=== PATIENT | female | born 1965 | race Caucasian/White ===

== ENCOUNTER 2022-09-19 14:25 | Outpatient (CLI) | payer OTHER, SELFPAY ==
[2022-09-19 14:50] LABS: Hemoglobin 14.1 g/dL (12.0-15.0)
--- NOTE | 2022-09-19 14:52 | ECG_ITS ---
Measurements Intervals [place] Rate: 62 P: 35 SD: 167 QRS: 38 QRSD: 95 T: 45 QT: 412 QTc: 420 Interpretive Statements SINUS RHYTHM NORMAL ELECTROCARDIOGRAM NO PREVIOUS ECG AVAILABLE FOR COMPARISON Electronically Signed On 09-20-2022 13:07:49 CDT by Puma Islas M.D.
[2022-09-19 15:00] LABS: Albumin Level 4.3 g/dL (3.5-5.1); Estimated Glomerular Filt Rate > 60; Glucose 147 mg/dL (65-110)
[2022-09-19 15:00] LABS: Urine Cotinine NEGATIVE
[2022-09-19 17:08] LABS: Hemoglobin A1C 5.6 % (<5.7)
== END 2022-09-19 14:26 | disposition home or self-care (01) ==
PROVIDERS: PCP Family Medicine; Visit Provider Orthopaedic Surgery
DX: M17.11 Unilateral primary osteoarthritis, right knee (principal); I10 Essential (primary) hypertension
CPT/HCPCS: 80307; 82040; 82565; 82947; 83036; 85014; 85018; 93005

== ENCOUNTER 2022-10-26 14:05 | Outpatient (CLI) | payer OTHER, SELFPAY ==
[2022-10-26 15:21] LABS: Basophils Absolute Auto 0.1 K/mm3 (0.0-0.1); Basophils Percent Auto 0.5 % (0.2-1.2); Eosinophils Absolute Auto 0.6 K/mm3 (0-0.3); Eosinophils Percent Auto 5.5 % (0-4.4); Hemoglobin 14.2 g/dL (12.0-15.0); Immature Granulocyte Absolute 0.03 K/mm3 (0.00-0.031); Immature Granulocyte Percent A 0.3 % (0-0.5); Lymphocytes Absolute Auto 4.47 K/mm3 (0.9-3.2); Lymphocytes Percent Auto 40.5 % (18.3-44.2); Mean Corpuscular HGB Conc 32.3 g/dl (32-36); Mean Corpuscular Hemoglobin 31.1 pg (26-34); Mean Corpuscular Volume 96.3 fl (80-100); Monocytes Absolute Auto 1.1 K/mm3 (0.1-0.6); Monocytes Percent Auto 9.7 % (2.6-8.5); Neutrophils Absolute Auto 4.8 K/mm3 (1.3-6.7); Neutrophils Percent Auto 43.5 % (45.5-73.1); Platelet Count Result 291 k/mm3 (150-375); Red Blood Count 4.57 M/mm3 (4.2-5.4); Red Cell Distribution Width 12.9 % (11.5-14.5)
[2022-10-26 15:31] LABS: Albumin Level 4.4 g/dL (3.5-5.1); Estimated Glomerular Filt Rate > 60; Glucose 91 mg/dL (65-110)
[2022-10-26 15:34] LABS: Urine Cotinine NEGATIVE
== END 2022-10-26 14:06 | disposition home or self-care (01) ==
LOC: ANHSURGERY 14:09
PROVIDERS: PCP Family Medicine; Visit Provider Orthopaedic Surgery
DX: M17.11 Unilateral primary osteoarthritis, right knee (principal); Z01.818 Encounter for other preprocedural examination
CPT/HCPCS: 80307; 82040; 82565; 82947; 85025; 87081

== ENCOUNTER 2022-11-25 15:45 | Observation (INO) | payer OTHER, SELFPAY ==
--- NOTE | 2022-10-26 13:19 | PC.NURSE ---
PRE-OP INSTRUCTIONS, PLEASE READ CAREFULLY Report to the Outpatient Waiting Room, entrance under the green pavilion located off [facility], at time _0600_ on date _11/24/22_. Planned Procedure Time: _0730_. PACK A SMALL OVERNIGHT BAG AND LEAVE IN THE CAR ALONG WITH YOUR WALKER Time changes happen often and if your time is changed the preop area will call you the afternoon before. - You and your visitor will be asked to self-screen and do not enter if you have any COVID symptoms. - A mask is optional within the hospital at this time. -VISITING HOURS 8AM-8PM Patients may have clear liquids (water, carbonated beverages, clear teas, apple juice) until 3 hours prior to surgery with a maximum of 20 ounces. - No food from midnight until time of surgery Take the following medications with a SIP of water the morning of surgery: _NONE_ DO NOT STOP ANY OF YOUR OTHER PRESCRIPTION MEDICATIONS PRIOR TO SURGERY ?EXCEPT THE FOLLOWING Medications to discontinue per ANESTHESIA - _MULTIVITAMIN / SUPPLEMENTS 3 DAYS PRIOR TO SURGERY, Date to take last dose 11/20/22_ Please no make-up, nail panamanian, hairspray, perfume, deodorant, or body powder the day of surgery. No jewelry (including any body piercings) or valuables the day of surgery, leave them at home. Please take a shower or bath the night before, or the morning of, surgery with an antibacterial soap. Wear comfortable, loose fitting clothing. - Jewelry must be removed prior to entering the operating room. Rings and piercings that are not removed may be cut off. - The hospital will not accept responsibility for valuables. - Please leave all valuables, including medications, at home the day of surgery. If you are going home after surgery, a licensed pick up and delivery driver must drive you home. - NO public transportation without another adult if you receive anesthesia. - We recommend that an adult stay with you for 24 hours following discharge. - We also recommend that you do not drive, make important decision, drink alcoholic beverages, or take any drugs that were not prescribed by your health care provider for at least 24 hours after your discharge time. Follow any additional instructions given to you from your surgeon. TOTAL JOINT CLASS 11/02/22 @ 1000 AM, [facility] ENTRANCE 2 - LOWER LEVEL If you or anyone in your household have experienced Covid symptoms in the past week, please notify your surgeon or the nurse liaison at the phone number below for possible testing. Telephone instructions given to _PATIENT_and asked if any additional questions and then verbalized understanding. Patient advised to call surgeon office or pre surgery nurse liaison [phone] if any additional questions.
[2022-10-26 14:33] VITALS: BP 124/76; PULSE 76; RESP 18; TEMP 36.8; O2SAT 97; BMI 37.3
[2022-11-24] VITALS (15 sets, daily range): BP systolic 126–150; BP diastolic 63–107; PULSE 63–87; RESP 12–20; TEMP 36.3–36.9; O2SAT 92–100; BMI 37.6
--- NOTE | 2022-11-24 06:41 | WPDANESEPPF ---
Anes - Initial Pre Proc Eval Procedure: Operation Date: 11/24/22 07:30 Proposed Procedures p Right Total Knee Arthroplasty - Tavo Sarmiento MD Date/Time: 11/24/22 06:41 Surgeon: Tavo Sarmiento MD Pre Op Diagnosis: primary oa right knee Patient Data Age: 57 Gender: F Height: 1.7 m Weight: 108.2 kg Last Vital Signs Temp 36.8 C 10/26/22 14:33 Pulse 76 10/26/22 14:33 Resp 18 10/26/22 14:33 BP 124/76 10/26/22 14:33 Pulse Ox 97 10/26/22 14:33 O2 Del Method Room Air 10/26/22 14:33 Allergies Allergy/AdvReac Type Severity Reaction Status Date / Time codeine Allergy Intermediate ITCHING Verified 11/24/22 06:40 cat dander Allergy Unknown ITCHY Verified 11/24/22 06:40 EYES/RUNNY NOSE horse dander Allergy Unknown ITCHY Verified 11/24/22 06:40 EYES/RUNNY NOSE house dust Allergy Unknown ITCHY Verified 11/24/22 06:40 EYES/RUNNY NOSE Home Medications Medication Instructions Recorded Confirmed Type multivitamin 1 tablet PO DAILY 04/04/19 10/26/22 History antiarthritic combination no.2 900 900 mg PO DAILY 07/15/21 10/26/22 History mg tablet (glucosamine-chondroitin) ascorbic acid (vitamin C) 1,000 mg 1,000 mg PO DAILY 07/15/21 10/26/22 History tablet flaxseed oil 1,000 mg capsule 1,000 mg PO DAILY 04/27/22 10/26/22 History tumeric 100 mg-jo 150 mg-olive 1 cap PO DAILY 04/27/22 10/26/22 History 50 mg-oreg 150 mg-caprylate capsule Nitric Oxide Gummy 2 gummy DAILY 10/26/22 10/26/22 History magnesium 250 mg tablet 250 mg DAILY 10/26/22 10/26/22 History prednisone 5 mg tablet 5 mg PO DAILY #55 tabs 10/26/22 10/26/22 Rx Patient hx anesthesia problems: none Family hx anesthesia problems: none Results Review: All pre-operative results and documents have been reviewed as part of the pre-operative evaluation. [facility] Past Medical History Medical History Hypertension Obesity due to excess calories Osteoarthritis of both knees Surgical History Surgical History History of cholecystectomy (~2013) Family History Family History Father Diabetes mellitus Family history of congenital heart disease Other Family history of malignant neoplasm of breast in first degree relative Social History Social History Smoking status: Former smoker Tobacco type: cigarettes Second hand tobacco smoke exposure: No Additional smoking assessment comments: STATES SMOKED SOCIALLY IN COLLEGE [id number]~DENIES ALL FORMS OF TOBACCO USE Alcohol intake: current Drinks per week: 1 Substance use: current Substance use type: marijuana Other substance usage details: 5MG GUMMY PRN SLEEP Last use: 10/22/22 Lack of Transportation: No Lack of Food: Never True Current Housing: I Have Housing Concerned About Future Housing: No Difficulty Paying Gas/Electric Bills: No Difficulty Paying for Meds: No Currently Unemployed: No Education: Associate Degree Difficulty w/ Childcare or Family Care: No Living arrangements: with family Spiritual care concerns: No Anes - Eval Final PreProcedure Day of Procedure 11/24/22 06:41 Patient weight: obese Heart: regular rate and rhythm Lungs: clear to auscultation Airway: Mallampati scale class II Neurological: alert and oriented Last oral intake: >/= 8 hours ASA classification: III Emergent: no Anesthetic plan: proceed Anesthesia type and monitoring: general LMA and standard monitoring Results Review: All pre-operative results and documents have been reviewed as part of the pre-operative evaluation. Informed Consent: The patient's anesthetic plan and its attendant risks and benefits were discussed with the patient/family/POA. Questions were solicited and answers provided to the
[2022-11-24] MEDS: ACETAMINOPHEN 500 MG TABLET 1000 MG PO (06:54)
[2022-11-24] MEDS: TRANEXAMIC ACID 1,000MG/ISO100 1,000 MG/100 ML BAG 200 MG IVPB (06:55)
[2022-11-24] MEDS: LACTATED RINGERS 1,000 ML 30 ML IV CONT ×2 (06:59→09:48)
--- NOTE | 2022-11-24 07:12 | WPDHPUPDATE1 ---
History and Physical Update Update Date/Time: 11/24/22 07:12 History and Physical has been reviewed, including an updated exam of the patient. There are NO changes in the patient's condition. Risks, benefits, and alternatives have been discussed and questions answered. Patient agrees to proceed with procedure.
--- NOTE | 2022-11-24 07:15 | WPDANESPNB ---
Anes - Peripheral Nerve Block Date/Time: 11/24/22 07:15 I have discussed with the patient/family/POA the placement of a peripheral nerve block for post-operative pain management, including associated risks, benefits, complications, and side effects. Alternative methods of post-operative analgesia were detailed. Questions were solicited and answers provided to the satisfaction of the patient/family/POA. Time-Out: A pre-procedural Time-Out was completed immediately before starting the procedure and confirmed: Patient Identification, Site, Procedure, Patient Position and the Availability of Requisite Equipment. Clinical Indications: Acute post-operative pain management requested by the operative surgeon. Nerve Block Insertion Note Anes-nerve block: femoral right Patient position: supine Skin prep: chlorhexidine Needle: 22 gauge, stimulating, insulated echogenic needle. Needle length: 50 mm Technique: nerve stimulation lost at (mA) (0.3) Injectate: bupivacaine 0.5% with epi 5 mcg/ml (30cc no epi) Observations: tolerated well Complications: none Procedure start time:: 709 Procedure end time:: 714
[2022-11-24] MEDS: ceFAZolin 2 GM/D5W 50 ML 2 GM/50 ML BAG IVPB ×3 (07:22→23:13)
[2022-11-24] MEDS: fentaNYL CITRATE INJ (*CRX) 100 MCG/2 ML VIAL 25 MCG IV PUSH ×8 (09:59→10:50)
--- NOTE | 2022-11-24 10:20 | W.PM.PROC2 ---
Procedure Note - Detailed Date of Procedure 11/24/22 Pre-op Diagnosis primary oa right knee Post-op Diagnosis Same Procedure Performed Total knee arthroplasty, right. Surgeon Tavo Sarmiento MD Anesthesia General and Regional (femoral block) Findings Good bone quality. Moderate synovitis. Valgus femur angle. 6 degree resection. Lateral release including popliteus, and IT band. 3 degree external rotation femur matched the AP axis well, with equal flexion gaps after lateral release. Description of Procedure The patient was brought to the operating room. A general anesthetic was administered. The leg was prepped and draped in the usual sterile fashion. The limb was elevated and the tourniquet inflated to 300 mmHg. A longitudinal incision was created along the medial border of the patella and patellar tendon, and a trivector approach to the knee was performed. No medial release was taken. The knee was then flexed. The osteophytes were carefully removed. The intramedullary guide was placed in the femoral canal. The distal femoral resection was then taken with the oscillating saw. The collateral ligaments were carefully protected. The tibia was carefully exposed. The jig was applied, and the proximal tibia was resected according to preoperative plan. The knee was balanced in extension. Appropriate releases were taken where needed. The anterior cruciate ligament and meniscal remnants were removed. The posterior cruciate ligament was preserved. The patella was measured. Patellar resection was carried out with the oscillating saw. The lug holes drilled. The femur was sized and rotation assessed using a combination of gap balancing, posterior referencing, and the AP axis. The 4 in 1 cutting block was used to finish the femoral cuts after equal gaps were assured. The osteophytes were carefully removed from the back of the knee. The knee was copiously irrigated with antibiotic solution periodically throughout the procedure. The meniscal remnants were removed. The spacer block was used to confirm equal flexion and extension gaps. Lateral release with pie crusting performed. The tibia was sized and broached. The bony surfaces were prepared with pulsatile lavage. The real tibia was impacted into position. The femur was press-fit. The patella was press-fit. Excess cement was carefully removed. Patellar tracking was carefully assessed. The lateral patellofemoral ligament was released. Copious irrigation then performed. The wound was closed with #1 Vicryl suture, #2, 2-0, and 3-0 barbed suture, followed by Steri-Strips. A sterile bulky dressing was applied. Meticulous hemostasis was maintained throughout the procedure, and the bipolar cautery device was used. The pain relieving mixture was injected into the periarticular tissues during the procedure. There were no complications. The patient was extubated and brought to the recovery room in stable condition after the application of sterile dressing with Otoniel bandage. Implants Eyestorm Triathlon knee system, press fit tritanium tibia size 5, press-fit cruciate retaining femoral component size 5 ,and an 11 mm X3 cruciate retaining polyethylene insert. 32 mm asymmetric metal backed tritanium patella component. Estimated Blood Loss -100.0 Drains No Pathology None sent Complications No immediate complications Condition Stable Disposition PACU [facility] Billing Surgery - Charge Forward: Surgery Billing
--- NOTE | 2022-11-24 10:22 | SUR.PHASEI ---
Simple mask removed at 1023.
[2022-11-24] MEDS: ONDANSETRON INJ 4 MG/2 ML VIAL IV PUSH ×2 (11:18→15:28)
[2022-11-24] MEDS: oxyCODONE HCL (*CRX) 5 MG TAB IR 10 MG PO ×2 (11:23→15:32)
--- NOTE | 2022-11-24 11:35 | PC.NURSE ---
Upon arrival from recovery patient c/o 8/[address] Sarmiento notified, new orders received.
[2022-11-24] MEDS: ASPIRIN 81 MG ENTERIC TABLET PO (16:18)
[2022-11-24] MEDS: MELOXICAM 7.5 MG TABLET PO (16:19)
[2022-11-24] MEDS: oxyCODONE HCL (*CRX) 5 MG TAB IR PO (21:49)
[2022-11-25] VITALS (9 sets, daily range): BP systolic 111–148; BP diastolic 60–72; PULSE 73–82; RESP 16–20; TEMP 36.5–37.2; O2SAT 93–98
--- NOTE | ~2022-11-25 | XR_ITS ---
EXAMINATION: [id number] DATE: 11/24/2022 10:03 INDICATION: Total right knee arthroplasty. Postop. TECHNIQUE: 2 views of right knee were obtained. COMPARISON: Right knee radiographs 01/20/2022 FINDINGS: There is a total right knee arthroplasty with patellar resurfacing in near-anatomic alignme nt. No fracture. There is gas in the knee joint and soft tissues, consistent with recent surgery. IMPRESSION: 1. Total right knee arthroplasty in near-anatomic alignment. Reviewed, dictated and finalized at location A.
[2022-11-25] MEDS: oxyCODONE HCL (*CRX) 5 MG TAB IR PO ×3 (03:47→17:11)
[2022-11-25 05:13] LABS: Basophils Percent Auto 0.2 % (0.2-1.2); Hemoglobin 12.6 g/dL (12.0-15.0); Immature Granulocyte Absolute 0.06 K/mm3 (0.00-0.031); Immature Granulocyte Percent A 0.5 % (0-0.5); Lymphocytes Absolute Auto 2.33 K/mm3 (0.9-3.2); Lymphocytes Percent Auto 18.1 % (18.3-44.2); Mean Corpuscular HGB Conc 32.3 g/dl (32-36); Mean Corpuscular Hemoglobin 31.3 pg (26-34); Mean Corpuscular Volume 96.8 fl (80-100); Monocytes Percent Auto 15.2 % (2.6-8.5); Neutrophils Absolute Auto 8.5 K/mm3 (1.3-6.7); Platelet Count Result 240 k/mm3 (150-375); Red Blood Count 4.03 M/mm3 (4.2-5.4); Red Cell Distribution Width 13.4 % (11.5-14.5); White Blood Count 12.9 K/mm3 (4.5-10.0)
[2022-11-25 05:31] LABS: Anion Gap 1 mmol/L (8-16); Blood Urea Nitrogen 16 mg/dL (7-17); Calcium 8.7 mg/dL (8.4-10.2); Carbon Dioxide 31 mmol/L (22-30); Chloride 103 mmol/L (98-107); Estimated CRCL calculation 98 ml/min; Estimated Glomerular Filt Rate > 60; Glucose 123 mg/dL (65-110); Potassium 4.1 mmol/L (3.4-5.0); Sodium 135 mmol/L (137-145)
--- NOTE | 2022-11-25 07:45 | PM.DS ---
DS: Admitting Diagnosis Discharge Date 11/25/22 Admitting Diagnosis OA knee Right DS: Discharge Diagnosis Discharge Diagnosis (1) Status post total right knee replacement: Code(s): Z96.651 - Presence of right artificial knee joint Status: Acute Assessment and Plan: Postop day 1: Right total knee arthroplasty. Patient tolerated procedure well. No complications. Pain manageable with pain medication. No numbness or tingling. We had a lengthy discussion regarding postoperative wound care, limitations, expectations, and exercises. Patient shows good understanding. She has had initial physical therapy and is tolerating it well. DVT prophylaxis: 81 mg baby aspirin b.i.d. for 14 days. Pain medication: Percocet. Prednisone. Patient has followup appointment with Dr. Sarmiento in 3 weeks. (2) Orthopedic aftercare: Code(s): Z47.89 - Encounter for other orthopedic aftercare Status: Acute DS: Summary Hospital Course Reason for hospitalization: Total knee arthroplasty Hospital Course: Patient tolerated procedure well. Has had initial PT/OT. No complications. Pain well managed. Status at Discharge Functional status at discharge: uses cane/walker Overall status at discharge: patient is progressing back to baseline Time Spent with Patient Time attestation: Total time spent providing and/or coordinating discharge services: Exam Narrative: Overweight 57 y/o female. Resting comfortably in bed. No acute distress. A&O x3. Wearing compression socks bilaterally. Dressing intact with no drainage. Moderate swelling. No ecchymosis. No erythema. No hematoma. Good early range of motion. Calf nontender. Quad function poor due to block. Neurologic status intact. No varicosities. Distal pulses palpable. DS: Data Data Completed and Pending Labs on day of discharge: Labs from last 24 hours 11/25/22 11/24/22 04:57 06:57 WBC 12.9 H RBC 4.03 L Hgb 12.6 Hct 39.0 MCV 96.8 MCH 31.3 MCHC 32.3 RDW 13.4 Plt Count 240 MPV 10.0 Immature Gran % (Auto) 0.5 Neut % (Auto) 66.0 Lymph % (Auto) 18.1 L [place] % (Auto) 15.2 H Eos % (Auto) 0.0 Baso % (Auto) 0.2 Lymph # (Auto) 2.33 [place] # (Auto) 2.0 H Eos # (Auto) 0.0 Baso # (Auto) 0.0 Abs Immat Gran (auto) 0.06 H Absolute Neuts (auto) 8.5 H Absolute Nucleated RBC 0.0 Nucleated RBC % 0.0 Sodium 135 L Potassium 4.1 Chloride 103 Carbon Dioxide 31 H Anion Gap 1 L BUN 16 Creatinine 0.70 Estim Creat Clear Calc 98 Estimated GFR > 60 Glucose 123 H Calcium 8.7 Blood Type A Positive Antibody Screen Negative Discharge Plan Discharge Patient Disposition: Home, Self-Care Discharge Instructions: See instruction sheet. Patient Instructions: Pain Management (DC), Total Knee Replacement (GEN) Stand Alone Forms: General Discharge Instructions Follow-up/Referrals: Tavo Sarmiento MD [Physician] - Discharge Medications: New aspirin [Enteric Coated Aspirin] 81 mg tablet,delayed release (DR/EC) 81 mg PO DAILY Qty: 28 0RF prednisone 5 mg tablet 5 mg PO DAILY Qty: 10 0RF oxycodone-acetaminophen 5-325 mg tablet 1 - 2 tablet PO Q6H MDD 6 tablets PRN (Reason: pain) Qty: 30 0RF Continued glucosamine-chondroitin 900 mg tablet 900 mg PO DAILY ascorbic acid (vitamin C) 1,000 mg tablet 1,000 mg PO DAILY multivitamin Tablet 1 tablet PO DAILY flaxseed oil 1,000 mg capsule 1,000 mg PO DAILY Rx Instructions: administer with a meal foajczt-ikmj-zppcz-oreg-capryl 100 mg-150 mg- 50 mg-150 mg capsule 1 cap PO DAILY Nitric Oxide Gummy 2 gummy DAILY magnesium 250 mg Tablet 250 mg DAILY
[2022-11-25] MEDS: MELOXICAM 7.5 MG TABLET PO ×2 (08:35→17:12)
[2022-11-25] MEDS: SENNA/DOCUSATE SODIUM TABLET 2 TAB PO (08:35)
[2022-11-25] MEDS: MULTIVITAMINS THERAPEUTIC TAB (*BKC) 1 TABLET PO (08:35)
[2022-11-25] MEDS: predniSONE 5 MG TABLET PO (08:35)
[2022-11-25] MEDS: ASCORBIC ACID 500 MG TABLET 1000 MG PO (08:36)
[2022-11-25] MEDS: ASPIRIN 81 MG ENTERIC TABLET PO ×2 (08:36→17:12)
[2022-11-25] MEDS: polyethylene glycoL 3350 17 GM POWD.PACK PO (08:37)
[2022-11-25] MEDS: ceFAZolin 2 GM/D5W 50 ML 2 GM/50 ML BAG IVPB (08:39)
[2022-11-25] MEDS: HYDROmorphone HCL INJ (*CRX) 1 MG/ML SYR 0.5 MG IV PUSH (11:24)
--- NOTE | 2022-11-25 14:20 | WPDANESPN ---
Anes - Prog Note Post-Op Date/Time: 11/25/22 14:20 Cardiovascular status: normal Respiratory status: normal Airway patency: baseline Mental status: baseline Post-Op hydration status: normal Vital Signs: Last Vital Signs Temp 36.6 C 11/25/22 09:20 Pulse 76 11/25/22 09:20 Resp 18 11/25/22 09:20 BP 111/60 11/25/22 09:20 Pulse Ox 95 11/25/22 09:54 O2 Del Method Room Air 11/25/22 09:54 O2 Flow Rate 2 11/24/22 12:00 Pain Score (VAS): 05/23 I/O: Intake & Output 11/24/22 11/25/22 11/25/22 23:59 07:59 15:59 Intake Total 250 360 Balance 250 360 Laboratory Tests 11/25/22 04:57 11/25/22 04:57 11/25/22 04:57 WBC 12.9 H RBC 4.03 L Hgb 12.6 Hct 39.0 MCV 96.8 MCH 31.3 MCHC 32.3 RDW 13.4 Plt Count 240 MPV 10.0 Immature Gran % (Auto) 0.5 Neut % (Auto) 66.0 Lymph % (Auto) 18.1 L [place] % (Auto) 15.2 H Eos % (Auto) 0.0 Baso % (Auto) 0.2 Lymph # (Auto) 2.33 [place] # (Auto) 2.0 H Eos # (Auto) 0.0 Baso # (Auto) 0.0 Abs Immat Gran (auto) 0.06 H Absolute Neuts (auto) 8.5 H Absolute Nucleated RBC 0.0 Nucleated RBC % 0.0 Sodium 135 L Potassium 4.1 Chloride 103 Carbon Dioxide 31 H Anion Gap 1 L BUN 16 Creatinine 0.70 Estim Creat Clear Calc 98 Estimated GFR > 60 Glucose 123 H Calcium 8.7 Patient Feedback: Patient satisfied with anesthetic care.
--- NOTE | 2022-11-25 15:21 | PM.PNORT ---
Progress Note: A&P Assessment and Plan (1) Status post total right knee replacement: Code(s): Z96.651 - Presence of right artificial knee joint Status: Acute Assessment and Plan: POD 1. Total knee arthroplasty. Patient having trouble with pain control. Requiring IV pain medication. She is struggling with formal physical therapy. I recommend she stay another night. Dr. Sarmiento saw the patient and agrees with the plan as well. Plan for discharge tomorrow. Subjective Subjective Date/Time Seen: 11/25/22 15:21 Interval history: Patient struggling with pain control. Unable to complete formal physical therapy exercises due to pain. She is having trouble of extending his knee. Review of Systems Review of Systems: All systems reviewed & are unremarkable except as noted in HPI and below Exam Narrative: Overweight 57 y/o female. Resting comfortably in bed. No acute distress. A&O x3. Wearing compression socks bilaterally. Dressing intact with no drainage. Moderate swelling. No ecchymosis. No erythema. No hematoma. Good early range of motion. Calf nontender. Quad function poor due to block. Neurologic status intact. No varicosities. Distal pulses palpable. Objective Data Vital Signs Vital Signs: Vital Signs - 24 hr 11/24/22 16:50 11/24/22 20:50 11/25/22 00:50 Temperature 97.5 F L 97.9 F 98.2 F Pulse Rate 64 84 82 Respiratory Rate 15 16 18 Blood Pressure 140/74 126/63 119/64 Pulse Oximetry 98 97 96 Oxygen Delivery 11/25/22 04:50 11/25/22 08:33 11/25/22 09:20 Temperature 98.5 F 97.9 F Pulse Rate 78 80 76 Respiratory Rate 16 18 Blood Pressure 130/67 127/61 111/60 Pulse Oximetry 97 93 97 Oxygen Delivery 11/25/22 09:54 11/25/22 08:30 Temperature Pulse Rate Respiratory Rate Blood Pressure Pulse Oximetry 95 Oxygen Delivery Room Air Room Air Intake/Output Intake/Output: Intake & Output 11/22/22 11/23/22 11/24/22 11/25/22 23:59 23:59 23:59 23:59 Intake Total 1050 360 Balance 1050 360 Meds/Results Medications: Active Medications Generic Name Dose Route Start Last Admin Trade Name Freq PRN Reason Stop Dose Admin Acetaminophen 1,000 mg 11/24/22 11:05 Acetaminophen 500 Mg Tablet PO Q6H PRN Pain Rated 1-3 Ascorbic Acid 1,000 mg 11/25/22 09:00 11/25/22 08:36 Ascorbic Acid 500 Mg Tablet PO 1,000 mg DAILY RICKY Administration Aspirin 81 mg 11/24/22 17:00 11/25/22 08:36 Aspirin 81 Mg Enteric Tablet PO 81 mg BID RICKY Administration Hydromorphone HCl 0.5 mg 11/24/22 11:34 11/25/22 11:24 Hydromorphone Hcl Inj (*Crx) 1 Mg/Ml Syr IV PUSH 0.5 mg Q2H PRN Administration Pain Rated 7-10 Meloxicam 7.5 mg 11/24/22 17:00 11/25/22 08:35 Meloxicam 7.5 Mg Tablet PO 7.5 mg BID RICKY Administration Multivitamins Therapeutic 1 tablet 11/25/22 09:00 11/25/22 08:35 Multivitamins Therapeutic Tab (*Bkc) PO 1 tablet DAILY [facility] Administration Naloxone HCl 0.1 mg 11/24/22 11:05 Naloxone Hcl 0.4 Mg/Ml Vial IV PUSH Q2M PRN Opiate Reversal Non-Formulary Medication 1 each 11/25/22 09:00 Nonformulary Nutritional Supplement XX 12/25/22 08:59 DAILY [facility] Ondansetron HCl 4 mg 11/24/22 11:05 11/24/22 15:28 Ondansetron Inj 4 Mg/2 Ml Vial IV PUSH 4 mg Q4H PRN Administration Nausea And Vomiting Oxycodone HCl 5 mg 11/24/22 11:05 11/25/22 08:36 Oxycodone Hcl (*Crx) 5 Mg Tab Ir PO 5 mg Q4H PRN Administration Pain Rated 4-6 Oxycodone HCl 10 mg 11/24/22 11:05 11/24/22 15:32 Oxycodone Hcl (*Crx) 5 Mg Tab Ir PO 10 mg Q4H PRN Administration Pain Rated 7-10 Polyethylene Glycol 17 gm 11/25/22 09:00 11/25/22 08:37 Polyethylene Glycol 3350 17 Gm Powd.Pack PO 17 gm QAM RICKY Administration Prednisone 5 mg 11/25/22 08:00 11/25/22 08:35 Prednisone 5 Mg Tablet PO 5 mg DAILY@0800 RICKY Administration Senna/Docusate Sodium 2 tab 11/24
[2022-11-25] MEDS: oxyCODONE HCL (*CRX) 5 MG TAB IR 10 MG PO (21:08)
[2022-11-26] MEDS: oxyCODONE HCL (*CRX) 5 MG TAB IR 10 MG PO ×2 (03:36→11:29)
[2022-11-26 04:18] VITALS: BP 131/67; PULSE 75; RESP 16; TEMP 36.8; O2SAT 95
[2022-11-26 08:00] VITALS: PULSE 75; RESP 16; O2SAT 95
[2022-11-26] MEDS: predniSONE 5 MG TABLET PO (08:44)
[2022-11-26] MEDS: ASPIRIN 81 MG ENTERIC TABLET PO (08:45)
[2022-11-26] MEDS: SENNA/DOCUSATE SODIUM TABLET 2 TAB PO (08:45)
[2022-11-26] MEDS: ASCORBIC ACID 500 MG TABLET 1000 MG PO (08:45)
[2022-11-26] MEDS: MELOXICAM 7.5 MG TABLET PO (08:45)
[2022-11-26] MEDS: MULTIVITAMINS THERAPEUTIC TAB (*BKC) 1 TABLET PO (08:45)
[2022-11-26] MEDS: polyethylene glycoL 3350 17 GM POWD.PACK PO (08:46)
== END 2022-11-26 14:02 | disposition home or self-care (01) ==
LOC: ANHSURGERY 16:01 → ANH2MED 16:01
PROVIDERS: Admitting Provider Orthopaedic Surgery; PCP Family Medicine; Visit Provider Orthopaedic Surgery
PROC: (CPT 27447; principal; 2022-11-24 07:30)
DX: M17.11 Unilateral primary osteoarthritis, right knee (principal); M54.30 Sciatica, unspecified side; M21.061 Valgus deformity, not elsewhere classified, right knee; M25.552 Pain in left hip; M54.9 Dorsalgia, unspecified; I10 Essential (primary) hypertension; E66.9 Obesity, unspecified; F10.90 Alcohol use, unspecified, uncomplicated; F12.90 Cannabis use, unspecified, uncomplicated; Z68.37 Body mass index [BMI] 37.0-37.9, adult; Z79.52 Long term (current) use of systemic steroids; Z79.899 Other long term (current) drug therapy; Z79.891 Long term (current) use of opiate analgesic
CPT/HCPCS: 27447; 64447; 36415; 73560; 80048; 80307; 82040; 82565; 82947; 85025; 86850; 86900; 86901; 87081; 97110; 97116; 97161; 97165; 97530; 97535; A9270; C1713; C1776; G0378; J0171; J0690; J1100; J1170; J1720; J1885; J2250; J2405; J2704; J2795; J3010; J7120; J7512

== ENCOUNTER 2023-02-21 11:45 | Outpatient (CLI) | payer OTHER, SELFPAY ==
--- NOTE | ~2023-02-21 | XR_ITS ---
Right Knee Technique: AP, lateral, and sunrise views were obtained. Clinical History: Orthopedic follow-up COMPARISON: 01/12/2023 Findings: No fracture or dislocation is seen. Right knee arthroplasty is in place, unchanged. No hard burgos complication seen.. Soft tissues are unremarkable. No joint effusion is seen. Impression: No acute abnormality. Right knee arthroplasty in place. Reviewed, dictated and finalized at location M. [employer] Impression: No acute abnormality. Right knee arthroplasty in place.
== END 2023-02-21 11:46 | disposition home or self-care (01) ==
PROVIDERS: PCP Family Medicine; Visit Provider Orthopaedic Surgery
DX: Z47.89 Encounter for other orthopedic aftercare (principal); Z96.651 Presence of right artificial knee joint
CPT/HCPCS: 73562

== ENCOUNTER 2023-04-24 09:48 | Outpatient (CLI) | payer OTHER, SELFPAY ==
--- NOTE | ~2023-04-24 | XR_ITS ---
EXAMINATION: XR knee RT 3V DATE: 04/24/2023 10:11 INDICATION: Encounter for other orthopedic aftercare. TECHNIQUE: 3 views of right knee including standing views were obtained. COMPARISON: Right knee radiographs 02/21/2023 FINDINGS: There is a total right knee arthroplasty with patellar resurfacing in near-anatomic alignme nt. No fracture. No periprosthetic lucency to suggest loosening or infection. There is an enthesophyt e at the proximal attachment of medial collateral ligament. There is a small knee joint effusion. IMPRESSION: 1. Total right knee arthroplasty in near-anatomic alignment. 2. Small right knee joint effusion. Reviewed, dictated and finalized at location A.
== END 2023-04-24 09:49 | disposition home or self-care (01) ==
PROVIDERS: PCP Family Medicine; Visit Provider Orthopaedic Surgery
DX: Z47.89 Encounter for other orthopedic aftercare (principal); M25.461 Effusion, right knee
CPT/HCPCS: 73562